=== PATIENT | female | born 1975 | race Caucasian/White ===

== ENCOUNTER 2016-10-25 23:03 | Emergency (ER) | payer OTHER ==
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
== END 2016-10-26 | disposition home or self-care (01) ==
LOC: ER 23:03
DX: S90.32XA Contusion of left foot, initial encounter (principal); W55.29XA Other contact with cow, initial encounter; Y92.830 Public park as the place of occurrence of the external cause